=== PATIENT | female | born 1955 | race Caucasian/White ===

== ENCOUNTER 2017-09-25 14:37 | Emergency (ER) | payer OTHER ==
[~2017-09-25] VITALS: Ht 172.7 cm; Wt 134.7 kg
[~2017-09-25 14:37] MED LIST: AMBIEN10 MG PO; ATENOLOL50 MG PO; ATIVAN1 MG PO; BETIMOL5 M1 OP; CRESTOR10 M1 PO; DUEXIS1 TAB PO; EXALGO PO; FISH OIL1 CAP PO; GLYBURIDE5 MG PO; HEP5I SC; HYDROCHLOROTHIA25 MG PO; HYDROMORPHONE2 M1 PO; LOTENSIN10 MG PO; PAROXETINE HCL30 MG PO; ROC1I IV; TIMOPTIC IN OCUD0.5% OP; XALOS OU
[2017-09-25 14:46] VITALS: Ht 172.7 cm; Wt 134.7 kg
[2017-09-25 17:27] VITALS: BP 158/74
== END 2017-09-25 17:27 | disposition home or self-care (01) ==
LOC: ED 14:37
DX: S46.912A Strain of unspecified muscle, fascia and tendon at shoulder and upper arm level, left arm, initial encounter (principal); S16.1XXA Strain of muscle, fascia and tendon at neck level, initial encounter; V89.2XXA Person injured in unspecified motor-vehicle accident, traffic, initial encounter; I10 Essential (primary) hypertension; E11.9 Type 2 diabetes mellitus without complications; Z88.0 Allergy status to penicillin; Z88.1 Allergy status to other antibiotic agents; Y93.79 Activity, other specified sports and athletics; Y92.89 Other specified places as the place of occurrence of the external cause; Y99.8 Other external cause status
CPT/HCPCS: J1885

== ENCOUNTER 2019-06-23 10:03 | Inpatient (IN) | payer OTHER ==
[~2019-06-23] VITALS: Ht 172.7 cm; Wt 134.3 kg
[2019-06-23 10:19] VITALS: Ht 172.7 cm; Wt 134.3 kg
--- NOTE | 2019-06-23 10:31 | NUR ---
PT TO ED FOR EVAL OF SOB AND COUGH WITH WHITE PHLEGM X 2 DAYS. PT STATES SHE IS HAVING TROUBLE CATCHING HER BREATHING WITH EXERCISE INTOLERANCE. PT ABLE TO SPEAK FULL CLEAR SENTENCES. DENIES CP. PT PLACED ON CM. [address] TERRELL AT BEDSIDE.
[2019-06-23 11:24] LABS: BASOPHIL % 0.4 % (0-2); PLATELET COUNT 258 x10^3mcL (130-400); RED CELL DISTRIBUTION WIDTH 13.3 % (11.5-14.5)
[2019-06-23 11:45] LABS: CARBON DIOXIDE 30.3 mmol/L (21-32); CHLORIDE SERUM 104 mmol/L (98-107); CREATININE SERUM 0.9 mg/dL (0.6-1.0); GFR1 > 60 mL/min; GLUCOSE SERUM 252 mg/dL (74-106); POTASSIUM SERUM 4.2 mmol/L (3.5-5.1); SODIUM SERUM 140 mmol/L (136-145)
[2019-06-23 11:47] LABS: microscopic required? NO
[2019-06-23 11:49] LABS: ALKALINE PHOSPHATASE 110 U/L (46-116); ALT/SGPT 48 U/L (14-59); AST/SGOT 21 U/L (15-37); BILIRUBIN TOTAL 1.51 mg/dL (0.20-1.00); TOTAL PROTEIN, SERUM 6.8 g/dL (6.4-8.2)
[2019-06-23 11:50] LABS: ALBUMIN 3.1 g/dL (3.4-5.0)
--- NOTE | 2019-06-23 11:57 | NUR ---
PT CONTINUES RESTING ON GURNEY. MILD SOB NOTED. PT DENIES ANY INCREASE IN SOB. REMAINS ON CM AND 02. IV STARTED TO R HAND. MEDICATED WITH LASIX IVP. CONITUE TO MONITOR. URINE COLLECTED AND SENT TO LAB.
[2019-06-23 12:02] LABS: UA SPECIFIC GRAVITY 1.025 (1.005-1.035); urine erythrocyte NEGATIVE (NEGATIVE)
[2019-06-23] MEDS ORDERED: GLIPIZIDE5 M3 PO (12:42)
[2019-06-23] MEDS ORDERED: LOT10 PO (12:43)
[2019-06-23] MEDS ORDERED: GOOD SENSE OMEP20 MG PO (12:43)
[2019-06-23] MEDS ORDERED: METFORMIN HYDR500 M1 PO (12:43)
[2019-06-23] MEDS ORDERED: PAROXETINE HCL30 MG PO (12:44)
[2019-06-23] MEDS ORDERED: KLOR-CON M2020 MEQ PO (12:44)
[2019-06-23] MEDS ORDERED: HYDROCHLOROTHIA25 MG PO (12:44)
[2019-06-23] MEDS ORDERED: TENORMIN50 MG PO (12:44)
[2019-06-23] MEDS ORDERED: LORAZEPAM1 MG PO (12:45)
[2019-06-23] MEDS ORDERED: AMBIEN10 MG PO (12:45)
[2019-06-23] MEDS ORDERED: PROAIR HFA8.5 GM IH (12:46)
--- NOTE | 2019-06-23 14:00 | NUR ---
RECEIVED ,RESOURCE NURSE.AAO X4.DENIES ANY PAIN/DISCOMFORT.ON SR ON THE MONITOR#8.HR=72. LUNG SOUND DIM ON THE BASES.IV SALINE LOCKED. AT BEDSIDE.CALL LIGHT WITHIN REACH.INSTRUCTED TO CALL FOR ANY PAIN/DISCOMFORT.WILL CONTINUE TO MONITOR PT.
[2019-06-23 14:40] VITALS: BP 136/65
--- NOTE | 2019-06-23 14:54 | NUR ---
RECEIVED PT FROM ER, PT ADMIT FOR CHF. PT IS A/O X4, VERBAL RESPONSIVE. LUNG SOUND CLEAR BILATERAL, BUT OCCASIONALLY COUGH AND PT STILL C/O MILD SOB. PT IS ON 2L/MIN O2 VIA NC. PO2 96%, PT IS ON TELE 8, NSR, DENY ANY CHSET PAIN OR DISCOMFORT. BOWEL SOUND PRESENT ALL 4 QUADRANTS, NO DISTNETION, NO TENDER. PEDAL PULSE PRESENT BOTH FEET, RLE NONPITTING EDEMA. IV AT RIGHT HAND, NO LEAKING, NO INFILTRAITON. ALL ADLS ASSIST, ALL NEED MET, CALL LIGHT IN REACH, WILL CONTINUE TO MONITOR.
[2019-06-23 16:16] VITALS: BP 137/44
[2019-06-23 18:00] VITALS: BP 137/54
--- NOTE | 2019-06-23 18:55 | NUR ---
TOOK EYE GTTS TO PHARMACY FOR VERIFICATION.NO SIGNIFICANT CHANGE NOTED.WILL ENDORSE TO NEXT SHIFT.
[2019-06-23 19:52] VITALS: BP 140/50
--- NOTE | 2019-06-23 20:00 | NUR ---
SHIFT ASSESSMENT DONE, PT AAO X4 VERBAL DENIES PAIN NO DISTRESS, STILL WITH EXPIRATORY WHEEZES, NO COUGHING OR CHEST CONGESTIONN PT ON LASIX FOR CHF, BLE +3 EDEMA PALPABLE PERIPHERAL PULSES, ON 2L/MIN VIA NC, SATURATING 95% RT PROT FOR TX, TELE #8 SR IN THE MONITOR WITH BBB, NO CP OR PRESSURE, ATTENDED NEEDS CALL LIGHT AT REACH.
--- NOTE | 2019-06-23 21:14 | NUR ---
PT INSIST TO HAVE HER POTASSIUM PO MEDS AND METFORMIN AT NIGHT AND WANTED THE DOSE TONIGHT EXPLAINED TO THE PT, THAT IT'S NOT ORDERED, AND WILL INFORM RESIDENT ON DUTY, ALSO PAXIL PO PT NORMALLY TAKES IT AT NIGHT, PHARMACIST MADE AWARE AND CHANGE DOSE AT NIGHT PER PT REQUEST, WILL CONT TO MONITOR.
--- NOTE | 2019-06-23 21:46 | NUR ---
DR ROBBINS TALKED TO THE PT, EXPLAINED RE HOME MEDS.
--- NOTE | 2019-06-24 02:00 | NUR ---
PT ON BIPAP LILLIANA WELL WITH IPAP 12, EPAP 6 RATE 19 PIP 5, F102 28 SATURATING 97% CHECKED AT INTERVALS.
[2019-06-24 05:22] VITALS: BP 144/60
[2019-06-24 05:59] VITALS: BP 144/60
--- NOTE | 2019-06-24 06:12 | NUR ---
PT OFF BIPAP, PUT ON 02 @ 2L/MIN NC, SATURATING 95% LILLIANA WELL, NO DISTRESS, BS 154 MG/DL COVERED WITH 3UNITS REG INSU, BP RECHECKED 144/66, HR 54, SR IN THE MONITOR, WILL CONT TO MONITOR.
[2019-06-24 06:15] LABS: BASOPHIL % 0.4 % (0-2); PLATELET COUNT 276 x10^3mcL (130-400); RED CELL DISTRIBUTION WIDTH 13.2 % (11.5-14.5)
[2019-06-24 06:28] LABS: CALCIUM 9.1 mg/dL (8.5-10.1); CARBON DIOXIDE 30.7 mmol/L (21-32); CHLORIDE SERUM 104 mmol/L (98-107); CREATININE SERUM 0.8 mg/dL (0.6-1.0); GFR1 > 60 mL/min; GLUCOSE SERUM 134 mg/dL (74-106); POTASSIUM SERUM 3.5 mmol/L (3.5-5.1); SODIUM SERUM 144 mmol/L (136-145)
--- NOTE | 2019-06-24 07:30 | NUR ---
A&OX4, FOLLOWS COMMANDS, ABLE TO COMMUNICATE. TELE #8, SINUS ARRYTHMIA. PERIPHERAL PULSES PALPABLE W/ +2 BLE EDEMA. LUNG SOUNDS ARE DIMINISHED BILATERALLY. REMAINS ON 2L NC. NORMOACTIVE BSX4. VOIDS WELL. ABLE TO STAND UP ON COMMAND. REPORTS FATIGUE WHILE WALKING TO RESTROOM. SKIN IS INTACT. STATES HEADACHE, WILL GIVE PAIN MEDICATION. IV SITE IS CDI. VITAL SIGNS STABLE. WILL CONTINUE TO MONITOR FOR SOB OR CHEST PAIN.
[2019-06-24 09:05] VITALS: BP 161/104
[2019-06-24 13:36] VITALS: BP 133/49
[2019-06-24 17:06] VITALS: BP 144/62
--- NOTE | 2019-06-24 17:54 | NUR ---
PATIENT IS CURRENTLY SITTING UP AND RESTING. PATIENT DENIES ANY CHEST PAIN OR SOB. STATES NOT DISCOMFORT. ALL QUESTIONS AND CONCERNS HAVE BEEN ADDRESSED. WILL CONTINUE TO MONITOR PATIENT.
--- NOTE | 2019-06-24 19:23 | NUR ---
PT CURRENTLY RESTING IN BED, NO ACUTE DISTRESS. A/O X4. TELE #8 SINUS BRADYCARDIA, DENIES CHEST PAIN. PULSES PALPABLE IN ALL EXTREMITIES, BLE EDEMA +2. LUNG SOUNDS DIMINISHED BILATERALLY, DENIES SOB, RECEIVING O2 VIA NC AT 2L. BOWEL SOUNDS ACTIVE, LAST BM 06/23/19. VOIDING WELL. MILD GENERALIZED WEAKNESS, AMBULATORY. SKIN INTACT. C/O HEADACHE PAIN 10/04. IV PATENT AND INTACT. BED IN LOWEST POSITION, SIDE RAILS UP X2, CALL LIGHT WITHIN REACH. WILL CONTINUE TO MONITOR.
[2019-06-24 20:55] VITALS: BP 148/60
[2019-06-25] VITALS (7 sets, daily range): BP systolic 127–168; BP diastolic 50–80
--- NOTE | 2019-06-25 00:28 | NUR ---
PT CURRENTLY RESTING IN BED, NO ACUTE DISTRESS. BIPAP CURRENTLY IN USE. WILL CONTINUE TO MONITOR.
--- NOTE | 2019-06-25 05:55 | NUR ---
PT SLEPT PERIODICALLY THROUGHOUT NIGHT, NO ACUTE DISTRESS. ALL NEEDS MET AND ATTENDED TO. NO SIGNIFICANT CHANGES. IV PATENT AND INTACT. MEDICATED PAIN PER EMAR. BED IN LOWEST POSITION, SIDE RAILS UP X2, CALL LIGHT WITHIN REACH. WILL ENDORSE CARE TO ONCOMING NURSE.
[2019-06-25 06:27] LABS: CALCIUM 9.3 mg/dL (8.5-10.1); CARBON DIOXIDE 34.1 mmol/L (21-32); CHLORIDE SERUM 103 mmol/L (98-107); CREATININE SERUM 0.8 mg/dL (0.6-1.0); GFR1 > 60 mL/min; GLUCOSE SERUM 152 mg/dL (74-106); POTASSIUM SERUM 3.7 mmol/L (3.5-5.1); SODIUM SERUM 143 mmol/L (136-145)
[2019-06-25 07:06] LABS: BASOPHIL % 0.6 % (0-2); PLATELET COUNT 260 x10^3mcL (130-400); RED CELL DISTRIBUTION WIDTH 13.3 % (11.5-14.5)
--- NOTE | 2019-06-25 07:37 | NUR ---
RECEIVED AWAKE, ALERT AND ORIENTED. ON CPAP AT THIS TIME. NO ACUTE RESP. DISTRESS NOTED. NO C/O PAIN OR DISCOMFORT AT THIS TIME. VS WNL. CALL LIGHT WITHIN REACH. WILL CONTINUE WITH PLAN OF CARE.
--- NOTE | 2019-06-25 15:00 | NUR ---
RESTING IN NO ACUTE DISTRESS. DENIES ANY DISCOMFORT AT THIS TIME.
--- NOTE | 2019-06-25 18:26 | NUR ---
SITTING AT THE EDGE OF THE BED. NO RESP. DISTRESS. NO C/O PAIN OR DISCOMFORT.VS WNL. NEW HL INSERTED TO LT HAND, PATENT. CALL LIGHT WITHIN REACH. WILL BE ENDORSED TO INCOMING SHIFT.
--- NOTE | 2019-06-25 20:00 | NUR ---
PT A/A/O X4. DENIES DIZZINESS AND HEADACHE. BREATH SOUNDS DIMINISHED MELISSA LUNGS BREATHING EVEN AND UNLABORED ON ROOM AIR, SPO2 92%. DENIES CHEST PAIN AND PRESSURE. BOWEL SOUNDS ACTIVE. NO C/O N/V AND ABD PAIN. TRACE EDEMA NOTED ON BLE. IV INTACT ON THE LEFT HAND. MADE PT COMFORTABLE. PLACED CALL LIGHT WITH IN REACH. WILL CONTINUE TO MONITOR.
--- NOTE | 2019-06-26 01:04 | NUR ---
PT RESTING WITH EYES CLOSED. PT ON BI PAP. PT TOLERATING IT WELL. NO DISCOMFORT NOTED. WILL CONTINUE TO MONITOR.
[2019-06-26 06:12] LABS: BASOPHIL % 0.5 % (0-2); PLATELET COUNT 270 x10^3mcL (130-400)
[2019-06-26 06:20] LABS: CALCIUM 8.9 mg/dL (8.5-10.1); CHLORIDE SERUM 103 mmol/L (98-107); CREATININE SERUM 0.8 mg/dL (0.6-1.0); GFR1 > 60 mL/min; GLUCOSE SERUM 165 mg/dL (74-106); POTASSIUM SERUM 3.4 mmol/L (3.5-5.1); SODIUM SERUM 144 mmol/L (136-145)
--- NOTE | 2019-06-26 06:36 | NUR ---
PT QUIET AND RESTING. WAS TAKEN OF BI PAP BY RT AND WAS PUT BACK TO 3L NC. PT DENIES DIFFICULTY BREATHING AND SOB. IV INTACT. MADE PT COMFORTABLE. WILL ENDORSE TO THE AM NURSE ACCORDINGLY.
[2019-06-26 06:43] VITALS: BP 155/71
--- NOTE | 2019-06-26 07:35 | NUR ---
PT SITTING UP IN BED A/A. BREATHING EQUAL/UNLABORED ON 3L/NC. NO ACUTE PAIN/ DISTRESS. NO REDNESS/ SWELLING TO IV SITE. BED IN LOW POSITION, CALL LIGHT IN REACH, SAFETY PRECAUTIONS IN PLACE. WILL CONTINUE TO MONITOR
[2019-06-26 07:39] VITALS: BP 154/83
[2019-06-26] MEDS ORDERED: LASIX40 MG PO (10:06)
[2019-06-26 11:16] VITALS: BP 154/83
--- NOTE | 2019-06-26 11:46 | NUR ---
PT DC'D HOME. PT A/A, BREATHING EQUAL/UNLABORED ON RA, NO ACUTE PAIN/ DISTRESS. DISCHARGE INSTRUCTIONS/ EDUCATION, F/U APPT, AND NEW RX DISCUSSED WITH PT AND . BOTH VERBALIZED UNDERSTANDING. ALL QUESTIONS /CONCERNS ADDRESSED. TELE MONITOR REMOVED AND RETURNED. IV REMOVED WITH CATHETER INTACT. PT BROUGHT DOWN TO LOBBY IN W/C, ACCOMPANIED BY AND BEHAVIORAL HEALTH CONSULTANT. ALL BELONGINGS WITH PT
== END 2019-06-26 11:46 | disposition home or self-care (01) | DRG 291 ==
LOC: ED 10:03 → DU 12:35
PROVIDERS: Emergency Medicine; ADMIT Internal Medicine
DX: I11.0 Hypertensive heart disease with heart failure (principal); J96.01 Acute respiratory failure with hypoxia; E66.2 Morbid (severe) obesity with alveolar hypoventilation; Z68.43 Body mass index [BMI] 50.0-59.9, adult; I50.33 Acute on chronic diastolic (congestive) heart failure; E11.9 Type 2 diabetes mellitus without complications; E78.5 Hyperlipidemia, unspecified
CPT/HCPCS: 36600; 82962; 83880; 94150; C9113; G0378; J1644; J1940; J7620; Q0092

== ENCOUNTER 2020-01-26 11:49 | Emergency (ER) | payer OTHER ==
[~2020-01-26] VITALS: Ht 175.3 cm; Wt 127.0 kg
[~2020-01-26 11:49] MED LIST changes: +GLIPIZIDE5 M3 PO; +GOOD SENSE OMEP20 MG PO; +KLOR-CON M2020 MEQ PO; +LASIX40 MG PO; +LORAZEPAM1 MG PO; +LOT10 PO; +METFORMIN HYDR500 M1 PO; +PROAIR HFA8.5 GM IH; +TENORMIN50 MG PO
[2020-01-26 12:01] VITALS: Ht 175.3 cm; Wt 127.0 kg
[2020-01-26 13:08] VITALS: BP 148/76
== END 2020-01-26 13:08 | disposition home or self-care (01) ==
LOC: ED 11:49
DX: I10 Essential (primary) hypertension (principal); E11.9 Type 2 diabetes mellitus without complications; F32.9 Major depressive disorder, single episode, unspecified; H40.9 Unspecified glaucoma; E66.9 Obesity, unspecified; Z68.41 Body mass index [BMI] 40.0-44.9, adult; Z88.2 Allergy status to sulfonamides; Z88.1 Allergy status to other antibiotic agents; Z88.8 Allergy status to other drugs, medicaments and biological substances